=== PATIENT | female | born 1995 | race Two or more races ===

== ENCOUNTER 2022-03-15 17:39 | Emergency (ER) | payer SELFPAY ==
[~2022-03-15] VITALS: Ht 170.2 cm; Wt 78.8 kg
[2022-03-15 17:40] VITALS: BP 131/93
== END 2022-03-15 22:01 | disposition left against medical advice (07) ==
LOC: M ED 17:39
DX: Z53.21 Procedure and treatment not carried out due to patient leaving prior to being seen by health care provider (principal)

== ENCOUNTER 2023-08-20 10:33 | Day surgery (SDC) | payer OTHER ==
[~2023-08-20] VITALS: Ht 170.2 cm; Wt 82.1 kg
[~2023-08-20 10:33] MED LIST: NS 1,000 ML IV SCH; XULA1DIS TD
[2023-08-20] MEDS ORDERED: LR 1,000 ML IV SCH ×2 (11:05→13:40)
[2023-08-20 11:12] LABS: HEMATOCRIT 39.2 % (36.0-47.0); HEMOGLOBIN 13.4 g/dl (12.0-15.5); MEAN CORPUSCULAR HEMOGLOBIN 31.6 pg (27.0-33.0); MEAN CORPUSCULAR HGB CONC 34.2 g/dl (32.0-36.5); MEAN CORPUSCULAR VOLUME 92.5 fl (80.0-96.0); PLATELET COUNT, AUTOMATED 283 10^3/uL (150-450); RED BLOOD COUNT 4.24 10^6/uL (4.00-5.40); WHITE BLOOD COUNT 5.4 10^3/uL (4.0-10.0)
[2023-08-20] MEDS ORDERED: fentaNYL 100 MCG/2 ML INJECTION As Ordered ONE (11:13)
[2023-08-20] MEDS ORDERED: MIDAZOLAM INJ 2MG/2ML VIAL As Ordered ONE (11:13)
[2023-08-20] MEDS ORDERED: propofoL 200 MG/20 ML VIAL As Ordered ONE (11:53)
[2023-08-20] MEDS ORDERED: LIDOCAINE 2% 100MG/5ML SDV (FOR ANES.) As Ordered ONE (11:53)
[2023-08-20] MEDS ORDERED: ACETAMINOPHEN 1000MG 100ML IV BAG As Ordered ONE (12:40)
[2023-08-20] MEDS ORDERED: SUGAMMADEX SODIUM 500 MG/5 ML VIAL (BRIDION) As Ordered ONE (12:42)
[2023-08-20] MEDS ORDERED: ONDANSETRON 4MG 2ML VIAL As Ordered ONE (12:42)
[2023-08-20] MEDS: LEVONORGESTREL 52MG (MIRENA) IUD As Ordered ONE (13:12)
[2023-08-20] MEDS ORDERED: ONDANSETRON 4MG 2ML VIAL IV PRN ×2 (13:40→15:40)
[2023-08-20] MEDS ORDERED: fentaNYL 100 MCG/2 ML INJECTION IV PRN (13:40)
[2023-08-20] MEDS ORDERED: KETOROLAC 60MG 2ML VIAL As Ordered ONE (13:40)
[2023-08-20] MEDS: oxyCODONE 5MG TAB PO PRN (13:53)
[2023-08-20 14:50] VITALS: BP 130/78; TEMP 97.7; O2SAT 100
== END 2023-08-20 15:09 | disposition home or self-care (01) ==
LOC: M SDC 10:33
PROVIDERS: ATTEND Obstetrics & Gynecology
DX: D25.9 Leiomyoma of uterus, unspecified (principal); N85.2 Hypertrophy of uterus; Q50 Congenital malformations of ovaries, fallopian tubes and broad ligaments; Z30.430 Encounter for insertion of intrauterine contraceptive device; F17.290 Nicotine dependence, other tobacco product, uncomplicated
CPT/HCPCS: 36415; 49320; 58300; 81025; 85027; 86850; 86900; 86901; J0131; J0665; J1100; J1885; J2250; J2405; J3010; J7298

== ENCOUNTER → 2024-03-09 | Outpatient (CLI) | payer OTHER ==
[~2024-03-09] MED LIST changes: -NS 1,000 ML IV SCH
== END ==
LOC: M RAD 09:03
PROVIDERS: ATTEND Otolaryngology
DX: J31.0 Chronic rhinitis (principal); J32.2 Chronic ethmoidal sinusitis; J32.0 Chronic maxillary sinusitis

== ENCOUNTER → 2024-04-14 | Outpatient (POV) | payer OTHER ==
[~2024-04-14] VITALS: Ht 170.2 cm; Wt 81.8 kg
[~2024-04-14] MED LIST changes: +AMIT10TA7 PO; +DIPH-435 PO; +EQ S0.65; +FLON1SPR; +GABA300T2 PO; +IBUP1TAB7 PO; +LIDO5DIS41 TOP; +METR-265 PO; +MIRE1IUD IY; +OMEP-173 PO
[2024-04-14 13:55] VITALS: BP 174/96; O2SAT 100
== END ==
LOC: M IRPOV 15:33
PROVIDERS: ATTEND Radiology Diagnostic Radiology
DX: D25.9 Leiomyoma of uterus, unspecified (principal); N94.6 Dysmenorrhea, unspecified; Z79.899 Other long term (current) drug therapy; Z97.5 Presence of (intrauterine) contraceptive device

== ENCOUNTER → 2024-05-25 | Outpatient (CLI) | payer OTHER | LOC: M RAD 12:35 | PROVIDERS: ATTEND Radiology Diagnostic Radiology | DX: D25.9 Leiomyoma of uterus, unspecified (principal) ==

== ENCOUNTER → 2024-05-31 | Outpatient (CLI) | payer OTHER ==
[~2024-05-31] MED LIST changes: +COLA100C5 PO; +HYDR-4571 PO; +IBUP-1022 PO; +KETO10TAB PO; +ONDA-282 PO
[2024-05-31 13:20] LABS: HEMOGLOBIN 14.6 g/dl (12.0-15.5); MEAN CORPUSCULAR HEMOGLOBIN 32.2 pg (27.0-33.0); MEAN CORPUSCULAR VOLUME 94.7 fl (80.0-96.0); PLATELET COUNT, AUTOMATED 312 10^3/uL (150-450); RED BLOOD COUNT 4.54 10^6/uL (4.00-5.40); WHITE BLOOD COUNT 7.8 10^3/uL (4.0-10.0)
[2024-05-31 13:32] LABS: INR 0.92; PROTHROMBIN TIME 12.7 SECONDS (12.5-14.5)
[2024-05-31 13:47] LABS: BLOOD UREA NITROGEN 10 MG/DL (9-23); CALCIUM LEVEL 9.9 MG/DL (8.5-10.1); CARBON DIOXIDE LEVEL 29 MMOL/L (20-31); CHLORIDE LEVEL 105 MMOL/L (98-107); CREATININE FOR GFR 1.05 MG/DL (0.55-1.30); GLOMERULAR FILTRATION RATE > 60.0 (>60); GLUCOSE, FASTING 78 MG/DL (60-100); POTASSIUM SERUM 3.8 MMOL/L (3.5-5.1); SODIUM LEVEL 141 MMOL/L (136-145)
== END ==
LOC: M LAB 10:30
PROVIDERS: ATTEND Radiology Diagnostic Radiology
DX: D25.9 Leiomyoma of uterus, unspecified (principal)

== ENCOUNTER → 2024-06-01 | Outpatient (CLI) | payer OTHER ==
[~2024-06-01] MED LIST changes: +ATROPINE SULF 1MG/10ML SYRINGE As Ordered ONE; +DOCUSATE SODIUM 100MG CAPSULE PO SCH; +EMBOSPHERE MICROSPHERES 500-700UM(MICRONS) 2ML SYRINGE As Ordered ONE; +EMBOSPHERE MICROSPHERES As Ordered ONE; +EPIDURAL/PCA KEYS XX PRN; +ISOVUE-300 61% 100ML VIAL As Ordered ONE; +MORPHINE 1MG/ML IN 0.9% NACL 100ML IV BAG IV PRN; +NALOXONE INJ 0.4MG/1ML VIAL IV PRN; +NITROGLYCERIN IN D5W 25MG/250ML (100MCG/ML) XX ONE; +NS (Normal Saline) 0.9% 1,000 ML IV SCH; +ONDANSETRON 4MG 2ML VIAL IV PRN; +ROPIvacaine 0.5% 30ML VIAL PB ONE; +diphenhydrAMINE 50MG/ML VIAL IV PRN
[2024-06-01 09:25] VITALS: TEMP 97.6
[2024-06-01] MEDS: EMLA CREAM 5GM TUBE (LIDOCAINE/PRILOCAINE) TOP ONE (09:53)
[2024-06-01] MEDS: NS (Normal Saline) 0.9% 1,000 ML IV SCH ×2 (10:04→13:43)
[2024-06-01] MEDS: ceFAZolin SODIUM 2 GM in DEXTROSE 5% (D5W) ADV/MINI-BAG 50 ML IV ONE (10:06)
[2024-06-01] MEDS: ACETAMINOPHEN 500 MG TAB PO ONE (10:06)
[2024-06-01] MEDS: IBUPROFEN 800 MG TAB PO ONE (10:07)
[2024-06-01] MEDS: NITROGLYCERIN 2% OINT 1 GM *U/D* PKT TOP ONE (11:00)
[2024-06-01] MEDS: fentaNYL 100 MCG/2 ML INJECTION IV PRN (11:03)
[2024-06-01] MEDS: MIDAZOLAM INJ 2MG/2ML VIAL IV PRN (11:04)
[2024-06-01] MEDS: HEPARIN 1,000UNITS/ML 10ML VIAL (FOR RADIOLOGY & DIALYSIS ONLY) IV PRN (11:12)
[2024-06-01] MEDS: NITROGLYCERIN IN D5W 25MG/250ML (100MCG/ML) XX SCH (11:12)
[2024-06-01] MEDS: ROPIvacaine 0.5% 30ML VIAL PB SCH (11:19)
[2024-06-01] MEDS: TRIAMCINOLONE ACETONIDE SUSP 40MG/ML 1ML VIAL IA ONE (11:20)
[2024-06-01] MEDS: EPINEPHrine INJ 1 MG/ML 1ML AMP XX ONE (11:20)
[2024-06-01] MEDS: dexAMETHasone 10MG/1ML VIAL PRES.FREE IV ONE (11:31)
[2024-06-01] MEDS: ISOVUE-300 61% 100ML VIAL IV ONE (13:00)
[2024-06-01] MEDS: LIDOCAINE 1% MDV 20ML VIAL SC ONE (13:00)
[2024-06-01] MEDS: KETOROLAC 30 MG/ML 1ML VIAL IV SCH (13:44)
[2024-06-01 15:15] VITALS: BP 113/65; O2SAT 100
== END ==
LOC: M IRPRO 09:07
PROVIDERS: ATTEND Radiology Diagnostic Radiology
DX: D25.9 Leiomyoma of uterus, unspecified (principal)
CPT/HCPCS: 37243; 64517; 99152; 99153; C1887; J0171; J0690; J1100; J1885; J2250; J2305; J2795; J3010; J3301; Q9967

== ENCOUNTER 2024-06-22 07:37 | Day surgery (SDC) | payer OTHER ==
[~2024-06-22] VITALS: Ht 170.2 cm; Wt 83.8 kg
[~2024-06-22 07:37] MED LIST changes: -ATROPINE SULF 1MG/10ML SYRINGE As Ordered ONE; -DOCUSATE SODIUM 100MG CAPSULE PO SCH; -EMBOSPHERE MICROSPHERES 500-700UM(MICRONS) 2ML SYRINGE As Ordered ONE; -EMBOSPHERE MICROSPHERES As Ordered ONE; -EPIDURAL/PCA KEYS XX PRN; -ISOVUE-300 61% 100ML VIAL As Ordered ONE; +LIDOCAINE 2% 100MG/5ML SDV (FOR ANES.) As Ordered ONE; +MIDAZOLAM INJ 2MG/2ML VIAL As Ordered ONE; -MORPHINE 1MG/ML IN 0.9% NACL 100ML IV BAG IV PRN; -NALOXONE INJ 0.4MG/1ML VIAL IV PRN; -NITROGLYCERIN IN D5W 25MG/250ML (100MCG/ML) XX ONE; -NS (Normal Saline) 0.9% 1,000 ML IV SCH; -ONDANSETRON 4MG 2ML VIAL IV PRN; +ROCURONIUM BROMIDE 50MG/5ML VIAL As Ordered ONE; -ROPIvacaine 0.5% 30ML VIAL PB ONE; -diphenhydrAMINE 50MG/ML VIAL IV PRN; +fentaNYL 250 MCG/5 ML INJECTION As Ordered ONE; +propofoL 200 MG/20 ML VIAL As Ordered ONE
[2024-06-22] MEDS ORDERED: LR 1,000 ML IV SCH ×2 (08:15→11:40)
[2024-06-22] MEDS ORDERED: ACETAMINOPHEN 1000MG/100ML IV BAG As Ordered ONE (10:30)
[2024-06-22] MEDS ORDERED: SUGAMMADEX SODIUM 500 MG/5 ML VIAL (BRIDION) As Ordered ONE (10:30)
[2024-06-22] MEDS ORDERED: ONDANSETRON 4MG 2ML VIAL As Ordered ONE (10:30)
[2024-06-22] MEDS ORDERED: KETOROLAC 30 MG/ML 1ML VIAL As Ordered ONE (10:30)
[2024-06-22] MEDS: LIDOCAINE W/EPINEPHRINE 1% 20ML VIAL As Ordered ONE (10:35)
[2024-06-22] MEDS: METHYLENE BLUE 0.5% (5MG/ML) 10 ML AMP (PROVAYBLUE) As Ordered ONE (10:56)
[2024-06-22] MEDS: OXYMETAZOLINE 0.05% NASAL SPRAY As Ordered ONE (10:56)
[2024-06-22] MEDS ORDERED: ESMOLOL INJ 100MG/10ML VIAL As Ordered ONE (11:05)
[2024-06-22] MEDS ORDERED: fentaNYL 100 MCG/2 ML INJECTION IV PRN (11:40)
[2024-06-22] MEDS: ONDANSETRON 4MG 2ML VIAL IV PRN (12:17)
[2024-06-22] MEDS: oxyCODONE 5MG TAB PO PRN (12:18)
[2024-06-22] MEDS: HYDROMORPHONE HCL 0.5 MG/ 0.5 ML SYRINGE IV PRN (12:18)
[2024-06-22 13:05] VITALS: BP 111/83; TEMP 97.4; O2SAT 98
== END 2024-06-22 13:51 | disposition home or self-care (01) ==
LOC: M SDC 07:37
PROVIDERS: ATTEND Otolaryngology
DX: J32.9 Chronic sinusitis, unspecified (principal); J35.3 Hypertrophy of tonsils with hypertrophy of adenoids; J34.2 Deviated nasal septum; R51.9 Headache, unspecified; R09.81 Nasal congestion; Z79.899 Other long term (current) drug therapy; Z87.891 Personal history of nicotine dependence
CPT/HCPCS: 30140; 31267; 31287; 61782; 81025; 88305; J0131; J1100; J1171; J1805; J1885; J2250; J2405; J3010; Q9968

== ENCOUNTER 2024-11-17 19:35 | Emergency (ER) | payer OTHER ==
[~2024-11-17] VITALS: Ht 170.2 cm; Wt 87.9 kg
[~2024-11-17 19:35] MED LIST changes: +AMIT10TA11 PO; -AMIT10TA7 PO; -IBUP-1022 PO; +IBUP600T42 PO; +LIDO1ADH93 TOP; -LIDO5DIS41 TOP; -LIDOCAINE 2% 100MG/5ML SDV (FOR ANES.) As Ordered ONE; -MIDAZOLAM INJ 2MG/2ML VIAL As Ordered ONE; +MONT10TA97 PO; -ROCURONIUM BROMIDE 50MG/5ML VIAL As Ordered ONE; -fentaNYL 250 MCG/5 ML INJECTION As Ordered ONE; -propofoL 200 MG/20 ML VIAL As Ordered ONE
[2024-11-17] MEDS: KETOROLAC 60 MG/2 ML VIAL IM ONE (21:31)
[2024-11-17 22:44] VITALS: BP 125/86; TEMP 97.4; O2SAT 100
== END 2024-11-17 22:47 | disposition home or self-care (01) ==
LOC: M ED 19:35
DX: S16.1XXA Strain of muscle, fascia and tendon at neck level, initial encounter (principal); R51.9 Headache, unspecified; V49.40XA Driver injured in collision with unspecified motor vehicles in traffic accident, initial encounter; Y92.9 Unspecified place or not applicable; Y93.9 Activity, unspecified; Y99.9 Unspecified external cause status; Z79.899 Other long term (current) drug therapy
CPT/HCPCS: 70450; 72125; 96372; 99283; J1885

== ENCOUNTER 2024-12-02 06:06 | Observation (INO) | payer OTHER ==
[2024-12-02] VITALS (8 sets, daily range): BP systolic 96–115; BP diastolic 51–71; TEMP 97.1–98.3; O2SAT 93–100
[~2024-12-02] VITALS: Ht 170.2 cm; Wt 88.3 kg
[2024-12-02] MEDS ORDERED: LR 1,000 ML IV SCH (06:35)
[2024-12-02 06:41] LABS: BASO # 0.0 10^3/uL (0.0-0.2); BASO % 0.4 % (0.0-1.0); EOS # 0.3 10^3/uL (0.0-0.5); EOS % 4.3 % (0.0-3.0); LYMPH # 2.9 10^3/uL (1.5-5.0); LYMPH % 42.4 % (24.0-44.0); MONO # 0.4 10^3/uL (0.0-0.8); MONO % 5.8 % (2.0-8.0); NEUTROPHILS # 3.2 10^3/uL (1.5-8.5); NEUTROPHILS % 46.8 % (36.0-66.0); PLATELET COUNT, AUTOMATED 301 10^3/uL (150-450)
[2024-12-02] MEDS ORDERED: ROCURONIUM BROMIDE 50MG/5ML VIAL As Ordered ONE (06:58)
[2024-12-02] MEDS ORDERED: dexAMETHasone 4 MG/ML 1 ML VIAL As Ordered ONE (06:58)
[2024-12-02] MEDS ORDERED: MIDAZOLAM INJ 2 MG/2 ML VIAL As Ordered ONE (06:58)
[2024-12-02] MEDS ORDERED: LIDOCAINE 2% 100 MG/5 ML SDV (FOR ANES.) As Ordered ONE (06:58)
[2024-12-02] MEDS: ceFAZolin SOD 2 GM IV ONCE IV ONE (07:30)
[2024-12-02] MEDS ORDERED: ESMOLOL 100 MG/10 ML VIAL As Ordered ONE (07:37)
[2024-12-02] MEDS ORDERED: HYDROmorphone HCL 2 MG/ML 1 ML VIAL As Ordered ONE (07:39)
[2024-12-02] MEDS: metroNIDAZOLE 500 MG in IV 1 EA IV ONE (08:00)
[2024-12-02] MEDS ORDERED: ONDANSETRON 4MG 2ML VIAL As Ordered ONE (08:19)
[2024-12-02] MEDS ORDERED: SUGAMMADEX SODIUM 200 MG/2 ML VIAL As Ordered ONE (08:54)
[2024-12-02] MEDS ORDERED: KETOROLAC 30 MG/ML 1 ML VIAL As Ordered ONE (10:07)
[2024-12-02] MEDS ORDERED: MORPHINE 4 MG/ML 1 ML VIAL IV PRN (11:15)
[2024-12-02] MEDS ORDERED: ONDANSETRON 4MG 2ML VIAL IV PRN (11:15)
[2024-12-02] MEDS: LR 1,000 ML IV SCH (12:53)
[2024-12-02] MEDS: GABAPENTIN 300 MG CAP PO PRN (14:33)
[2024-12-02] MEDS: KETOROLAC 30 MG/ML 1 ML VIAL IV SCH (15:14)
[2024-12-02] MEDS: ONDANSETRON 4MG 2ML VIAL IV PRN (16:31)
[2024-12-02] MEDS: ACETAMINOPHEN 500 MG TAB PO SCH (18:02)
[2024-12-02] MEDS: MIRALAX *UNIT DOSE* 17 GM PACKET PO SCH (21:34)
[2024-12-03] VITALS: BP 112/66; TEMP 99; O2SAT 99
[2024-12-03 04:00] VITALS: BP 104/54; TEMP 97.8; O2SAT 99
[2024-12-03 08:06] VITALS: BP 114/57; TEMP 97.7; O2SAT 100
[2024-12-03] MEDS: SIMETHICONE 80MG CHEW TAB PO PRN (08:24)
[2024-12-03] MEDS ORDERED: HOME MED LIST COMPLETE! XX SCH (09:10)
[2024-12-03 09:26] LABS: BASO # 0.0 10^3/uL (0.0-0.2); BASO % 0.1 % (0.0-1.0); EOS # 0.1 10^3/uL (0.0-0.5); EOS % 0.6 % (0.0-3.0); LYMPH # 2.4 10^3/uL (1.5-5.0); LYMPH % 25.3 % (24.0-44.0); MONO # 0.4 10^3/uL (0.0-0.8); MONO % 4.6 % (2.0-8.0); NEUTROPHILS # 6.6 10^3/uL (1.5-8.5); NEUTROPHILS % 69.1 % (36.0-66.0); PLATELET COUNT, AUTOMATED 274 10^3/uL (150-450)
[2024-12-03] MEDS ORDERED: IBUPROFEN 800 MG TAB PO SCH (12:00)
== END 2024-12-03 10:47 | disposition home or self-care (01) ==
LOC: M SDC 06:06 → M RR INP 06:07 → UNDOADMOB 11:24 → INTOOBSV 11:24 → M RR INP 11:24 → M PED 12:24
PROVIDERS: ADMIT Obstetrics & Gynecology; ATTEND Obstetrics & Gynecology
DX: D25.9 Leiomyoma of uterus, unspecified (principal); N94.6 Dysmenorrhea, unspecified; N85.2 Hypertrophy of uterus; Z53.31 Laparoscopic surgical procedure converted to open procedure
CPT/HCPCS: 36415; 58150; 74018; 81025; 85025; 86850; 86900; 86901; 88307; 96374; 96375; 96376; J0665; J0666; J0688; J1100; J1171; J1805; J1836; J1885; J2250; J2405; J3010